=== PATIENT | female | born 1990 | race Two or more races ===

== ENCOUNTER 2025-05-06 10:33 | Emergency (ER) | payer OTHER ==
[~2025-05-06] VITALS: Ht 165.1 cm; Wt 59.0 kg
[2025-05-06 11:37] VITALS: BP 115/84; TEMP 98.5; O2SAT 98
== END 2025-05-06 11:30 | disposition home or self-care (01) ==
LOC: ER 10:52
DX: G44.84 Primary exertional headache (principal); F19.10 Other psychoactive substance abuse, uncomplicated; Z91.018 Allergy to other foods